=== PATIENT | female | born 1990 | race Caucasian/White ===

== ENCOUNTER → 2016-09-19 | Outpatient (CLI) | payer OTHER ==
--- NOTE | 2016-09-19 14:21 | US ---
EXAMINATION TYPE: US thyroid st tissue head/neck DATE OF EXAM: 09/19/2016 1:13 PM COMPARISON: NONE CLINICAL HISTORY: 26 year-old female E04.9 Enlarged thyroid. TECHNIQUE: Multiple sonographic images of the thyroid gland were obtained. FINDINGS: Right Lobe: 5.3 x 1.7 x 2.2 cm Left Lobe: 4.9 x 1.5 x 1.9 cm Isthmus Thickness: 0.3 cm The glandular parenchyma appears minimally heterogeneous. No discrete nodule. IMPRESSION: Borderline to mild thyromegaly. No discrete nodule.
== END | disposition home or self-care (01) ==
LOC: RADUSWWP 12:54
PROVIDERS: ATTEND Obstetrics & Gynecology
DX: E01.0 Iodine-deficiency related diffuse (endemic) goiter (principal)
CPT/HCPCS: 76536

== ENCOUNTER → 2016-10-21 | Outpatient (CLI) | payer OTHER ==
[2016-10-21 11:19] LABS: CH 33.6; CHCM 34.8; HCT 34.7 % (34.0-46.0); HDW 2.79; HGB 12.1 gm/dL (11.4-16.0); MCH 33.9 pg (25.0-35.0); MCHC 34.8 g/dL (31.0-37.0); MCV 97.3 fL (80.0-100.0); Mean Platelet Volume 7.9; RBC 3.56 m/uL (3.80-5.40); RDW 13.5 % (11.5-15.5)
[2016-10-21 11:25] LABS: Glucose 81 mg/dL (74-99); Non-African American GFR(MDRD) >60 (>60 ml/min/1.73 sqM)
[2016-10-21 11:56] LABS: Hepatitis B Surface Ag Index 0.09
[2016-10-22 04:33] LABS: Toxoplasma Antibody (IgG) <3.0 IU/mL (<7.2)
[2016-10-22 07:43] LABS: HIV-1/HIV-2 Ab Screen NONREAC (NON REAC)
[2016-10-24 14:07] LABS: Alpha Fetoprotein (M.O.M) 1.05; B-HCG (M.O.M.) 1.18; Gestational Age (days) 6; Human Chorionic Gonadotropin 25.9 IU/mL; Inhibin A (M.O.M.) 2.48; Interpretation SeeBelow; Maternal Age at EDD (Yrs) 28; Unconjugated Estriol (M.O.M.) 0.58
== END | disposition home or self-care (01) ==
LOC: LABWHC1 10:39
PROVIDERS: ATTEND Obstetrics & Gynecology
DX: Z34.92 Encounter for supervision of normal pregnancy, unspecified, second trimester (principal); Z3A.00 Weeks of gestation of pregnancy not specified
CPT/HCPCS: 36415; 82105; 82565; 82677; 82947; 84443; 84702; 85027; 86336; 86762; 86777; 86778; 86780; 86850; 86900; 86901; 87340; 87389

== ENCOUNTER → 2016-10-21 | Outpatient (CLI) | payer OTHER ==
--- NOTE | 2016-10-21 11:36 | US ---
EXAMINATION TYPE: US OB anatomy transabd DATE OF EXAM: 10/21/2016 10:38 AM COMPARISON: NONE HISTORY: LGA, Anatomy scan TECHNIQUE: Transabdominal (TA) EXAM MEASUREMENTS: GESTATIONAL AGE / DATING Physician Established: (19 weeks/2 days) EDC: 03/15/2017 Dates by LMP: Unknown Dates by First Scan: No prior Dates by Current Scan for: (18 weeks/6 days) EDC: 03/18/2017 SURVEY IUP: Single PLACENTA: Anterior PREVIA: Low Lying ALPHONSO: 13.4 cm Normal CERVICAL LENGTH (transabdominal: norm > 3.0cm): 4.4 cm CERVICAL LENGTH (transvaginal: norm> 2.5cm BIOMETRY PRESENTATION: Breech BPD: 4.2 cm 18 weeks / 5 days HC: 16.4 cm 19 weeks / 1 days AC: 14.1 cm 19 weeks / 4 days FL: 2.8 cm 18 weeks / 4 days ESTIMATED WEIGHT IN GRAMS: 272 grams ESTIMATED WEIGHT IN LBS/OZS: 0 lbs. 10 oz. WEIGHT PERCENTAGE BASED ON ESTABLISHED DATE: 32.8 % HC/AC: 1.16 Normal FL/AC: 20 Normal HEART RATE: 149 bpm RHYTHM: Normal ANATOMY SEEN (within normal limits): * Lateral Vent (< 1 cm) 0.7 cm * Cisterna Magna (< 1.1 cm) 0.4 cm * Nuchal Fold (< 0.6 cm) 0.4 cm * Cerebellum (varies with age) 1.9 cm Choroid Plexus (bilateral) Midline Falx Cavus Septi Pellucidi Four Chamber Heart Outflow tracts: LVOT/RVOT Stomach Situs Diaphragm Nose / Lips Kidneys (bilateral) Bladder Cord Insert Three Vessel Cord Longitudinal Spine Transverse Spine Arms (bilateral) Legs (bilateral) Single, viable IUP/ No abnormality seen at this time. IMPRESSION: Dobbs fetus present in a breech presentation with a gestational age of 18 weeks 6 days +/- 12 day s. Estimated date of confinement based on this examination is 03/18/2017.
== END | disposition home or self-care (01) ==
LOC: RADUSWWP 10:11
PROVIDERS: ATTEND Obstetrics & Gynecology
DX: O36.62X0 Maternal care for excessive fetal growth, second trimester, not applicable or unspecified (principal); Z3A.18 18 weeks gestation of pregnancy
CPT/HCPCS: 76811

== ENCOUNTER → 2017-01-12 | Outpatient (CLI) | payer OTHER ==
[2017-01-12 11:23] LABS: CH 34.3; CHCM 35.2; HCT 35.4 % (34.0-46.0); HDW 3.28; HGB 11.9 gm/dL (11.4-16.0); MCHC 33.6 g/dL (31.0-37.0); MCV 98.2 fL (80.0-100.0); Mean Platelet Volume 8.8; RBC 3.61 m/uL (3.80-5.40); RDW 13.8 % (11.5-15.5); WBC 11.5 k/uL (3.8-10.6)
== END | disposition home or self-care (01) ==
LOC: LABWHC1 10:04
PROVIDERS: ATTEND Obstetrics & Gynecology
DX: Z34.83 Encounter for supervision of other normal pregnancy, third trimester (principal); Z3A.00 Weeks of gestation of pregnancy not specified
CPT/HCPCS: 36415; 82950; 85027

== ENCOUNTER 2017-02-28 20:41 | Inpatient (IN) | payer OTHER ==
[2017-02-28] MEDS ORDERED: METHYLERGONOVINE 0.2 MG/ML 1 ML AMP IM PRN (22:10)
[2017-02-28] MEDS ORDERED: TERBUTALINE 1 MG/ML VIAL SQ PRN (22:10)
[2017-02-28] MEDS ORDERED: CLINDAMYCIN 900 MG in DEXTROSE 5% IN WATER 50 ML IVPB STA ×2 (22:10)
[2017-02-28] MEDS ORDERED: OXYTOCIN 10 UNIT/ML 1 ML VIAL IM PRN (22:10)
[2017-02-28] MEDS ORDERED: CARBOPROST TROMETHAMINE 250 MCG/ML 1 ML AMP IM PRN (22:10)
[2017-02-28] MEDS ORDERED: LIDOCAINE 1% (PF) 10 MG/ML (30 ML SDV) SQ PRN (22:10)
[2017-02-28] MEDS: LACTATED RINGERS 1,000 ML IV SCH ×2 (22:16→22:35)
[2017-02-28 22:23] LABS: Basophils % (A) 0 %; CH 33.6; CHCM 34.9; Eosinophils # (A) 0.1 k/uL (0-0.7); Eosinophils % (A) 1 %; HCT 36.9 % (34.0-46.0); HGB 12.3 gm/dL (11.4-16.0); Luc # (Auto) 0.14; Luc % (Auto) 1; Lymphocytes # (A) 1.4 k/uL (1.0-4.8); Lymphocytes % (A) 12 %; MCH 32.5 pg (25.0-35.0); MCHC 33.5 g/dL (31.0-37.0); Mean Platelet Volume 9.6; Monocytes # (A) 0.6 k/uL (0-1.0); Monocytes % (A) 5 %; Neutrophils # (A) 9.4 k/uL (1.3-7.7); Neutrophils % (A) 81 %; RDW 13.8 % (11.5-15.5); WBC 11.6 k/uL (3.8-10.6)
[2017-02-28] MEDS ORDERED: fentaNYL (PF) 50 MCG/ML 5 ML AMP ONE (22:28)
[2017-02-28] MEDS ORDERED: SODIUM CHLORIDE 0.9% 100 ML BAG ONE (22:28)
[2017-02-28] MEDS ORDERED: BUPIVACAINE (PF) 0.25% 30 ML VIAL ONE (22:28)
--- NOTE | 2017-02-28 22:28 | P.HPOB ---
History of Present Illness H&P Date: 02/28/17 Chief Complaint: Contractions. This patient is a pleasant 26-year-old 8 para 4 female estimated date of confinement 03/15/2017 estimated gestational age 37-6/7 weeks who presents to labor and delivery with complaints of painful contractions since 7:00 this evening. Patient was 3 cm in the office is now 5 cm dilated and having regular contractions. care is per Dr. Mendes appears to be uncomplicated Review of Systems Constitutional: Denies chills, Denies fever Ears, nose, mouth and throat: Denies headache, Denies sore throat Cardiovascular: Denies chest pain, Denies shortness of breath Respiratory: Denies cough Gastrointestinal: Reports heartburn Genitourinary: Reports Menstruation: Reports amenorrhea Musculoskeletal: Denies myalgias Integumentary: Denies pruritus, Denies rash Neurological: Denies numbness, Denies weakness Psychiatric: Denies anxiety, Denies depression Endocrine: Denies fatigue, Denies weight change Past Medical History Past Medical History: No Reported History History of Any Multi-Drug Resistant Organisms: None Reported Additional Past Surgical History / Comment(s): D&C 2 Past Anesthesia/Blood Transfusion Reactions: No Reported Reaction Past Psychological History: No Psychological Hx Reported Smoking Status: Current every day smoker Past Alcohol Use History: None Reported Past Drug Use History: None Reported - Past Family History Mother History Unknown: Yes Family Medical History: Hypertension Medications and Allergies Allergies Allergy/AdvReac Type Severity Reaction Status Date / Time albuterol Allergy Unknown Verified 02/28/17 20:54 Childhood amoxicillin trihydrate Allergy Unknown Verified 02/28/17 20:54 [From Augmentin] Childhood erythromycin base Allergy Unknown Verified 02/28/17 20:54 Childhood potassium clavulanate Allergy Unknown Verified 02/28/17 20:54 [From Augmentin] Childhood Sulfa (Sulfonamide Allergy Unknown Verified 02/28/17 20:54 Antibiotics) Childhood Exam - Vital Signs Vital signs: Vital Signs Temp Pulse Resp BP Pulse Ox 02/28/17 20:55 98.2 F 98 18 122/73 97 Intake and Output 02/28/17 02/28/17 02/28/17 06:59 14:59 22:59 Other: Weight 73.936 kg Patient Weight 03/01/17 06:59 Weight 73.936 kg - OBG Physical Exam Abdomen: bowel sounds normal, no diffuse tenderness, no bruit present, no guarding noted, no hepatomegaly, no splenomegaly, no mass Vulva: both: normal Cervix: no lesion (Cervix is 5 cm dilated and 50% effaced.), no discharge Uterus: enlarged (Fundal height is consistent with a term .) Results blood work shows she is . positive, rubella low positive, hepatitis B negative, RPR is nonreactive, group B strep was negative, although she does have a history of positive strep with previous . HIV was nonreactive, toxoplasmosis was negative, Assessment and Plan (1) Third trimester Narrative/Plan: This is a pleasant 26-year-old 8 para 4 female 37-6/7 weeks gestation and is admitted to labor and delivery in early active labor. Patient's group B strep was negative but does have a history of positive therefore I'm going to give her dose of antibiotics. Plan is anticipate normal spontaneous vaginal delivery. Status: Acute (2) Normal labor Status: Acute
[2017-02-28] MEDS ORDERED: OXYTOCIN 20 UNITS/1000 ML NS 1,000 ML IV SCH (23:30)
[2017-03-01] MEDS ORDERED: MEASLES-MUMPS-RUBELLA VACC/PF 12,500 UNIT/0.5 ML VIAL SQ ONE (01:24)
[2017-03-01] MEDS ORDERED: BENZOCAINE/MENTHOL SPRAY 1 GM/SPRAY AEROSOL TOPICAL PRN (01:24)
[2017-03-01] MEDS ORDERED: ACETAMINOPHEN TAB 325 MG TAB PO PRN (01:24)
[2017-03-01] MEDS ORDERED: LANOLIN CREAM 5 GM TUBE TOPICAL PRN (01:24)
[2017-03-01] MEDS ORDERED: diphenhydrAMINE 50 MG/ML 1 ML VIAL IVP PRN (01:24)
[2017-03-01] MEDS ORDERED: Acetaminophen-Codeine 300-30mg TAB PO PRN ×2 (01:24)
[2017-03-01] MEDS ORDERED: BISACODYL 10 MG SUPP RECTAL PRN (01:24)
[2017-03-01] MEDS ORDERED: WITCH HAZEL 1 EACH MED..PAD TOPICAL PRN (01:24)
[2017-03-01] MEDS ORDERED: ZOLPIDEM 5 MG TAB PO PRN (01:24)
[2017-03-01] MEDS ORDERED: diphenhydrAMINE 25 MG CAP PO PRN (01:24)
[2017-03-01] MEDS ORDERED: SIMETHICONE 80 MG CHEWABLE PO PRN (01:24)
[2017-03-01] MEDS ORDERED: HYDROCORTISONE 2.5% RECTAL CREAM 30 GM TUBE RECTAL PRN (01:24)
--- NOTE | 2017-03-01 01:28 | P.PROBDLV ---
Vaginal Delivery Note - . Vaginal Delivery Note: Normal vaginal delivery viable male Apgars are 8 and 9 delivery time is 0114 hours. Please see dictated H&P for intimate details of this patient's admission. Brief summary this pleasant 26-year-old 8 para 4 female 37-6/7 weeks gestation admitted to labor and delivery in active labor. Patient has one dose of antibiotics given for history of positive strep although she was negative this and artificial rupture membranes at 5 cm for clear fluid. She does get an epidural for pain control. Labor progresses normally she gets to complete pushes the head to the perineum. Posterior perineum was supported we have controlled delivery of the infant's head over the intact perineum. Mouth and nares are bulb suctioned. There is a double nuchal cord which was loose and reduced. With gentle downward traction we then have delivery anterior posterior shoulder and rest this infant's body. This is a vigorous viable male Apgars are 8 and 9 delivery time is 0114 hours. After delivery of the the umbilical cord is doubly clamped and cut appears to be trivascular. Placenta is then spontaneously delivered intact. Estimated blood loss is 100 mL. There is a superficial posterior laceration which is repaired with a [id number] suture of 3-0 Vicryl. Excellent reapproximation is noted. and mother are stable delivery room. There are no complications. All counts are correct 3.
[2017-03-01] MEDS ORDERED: OXYTOCIN 20 UNITS/1000 ML NS 1,000 ML IV SCH (01:30)
[2017-03-01 02:06] VITALS: BMI 25.5
[2017-03-01] MEDS: IBUPROFEN 600 MG TAB PO PRN ×3 (03:51→23:00)
--- NOTE | 2017-03-01 06:21 | P.MSEPDOC ---
Presenting Problems - Arrival Data Date of Arrival on Unit: 02/28/17 Time of Arrival on Unit: 20:42 Mode of Transport: Wheelchair - Complaint OB-Reason for Admission/Chief Complaint: Possible Onset of Labor Comment: 1901 Medical History - Information : 8 Para: 4 Term: 4 : 0 Abortions: Spontaneous or Elective: 1 Number of Living Children: 4 - Gestational Age Expected Date of Delivery: 03/15/17 Gestational Age by SAVAGE (wks/days): 38 Weeks and 0 Days - History Comment: history of GBS+ Review of Systems - Review of Systems Constitutional: No problems Breast: No problems ENT: No problems Cardiovascular: No problems Respiratory: No problems Gastrointestinal: No problems Genitourinary: No problems Musculoskeletal: No problems Neurological: No problems Skin: No problems Vital Signs - Temperature Temperature: 96.8 F Temperature Source: Temporal Artery Scan - Pulse Right Pulse Rate: 69 Pulse Assessment Method: Automatic Cuff - Respirations Respiratory Rate: 16 Oxygen Delivery Method: Room Air - Blood Pressure Right Arm Blood Pressure: 108/60 Blood Pressure Mean: 76 Blood Pressure Source: Automatic Cuff Medical Screen Scoring (Pre) - Cervical Exam Dilation: 4-7 cm = 2 Membranes: Intact - Uterine Contractions Frequency: > or = 36 weeks =2 Duration: > 40 seconds = 2 Intensity: N/A - Maternal Vital Signs Maternal Temperature: N/A Maternal Blood Pressure: N/A Signs of Preeclampsia: N/A Maternal Respirations: N/A - Maternal Trauma Maternal Trauma: N/A - Assessment Baseline FHR: 130 Heart Rate - NICHD Category: Category I (Normal) = 0 NST: Reactive Position: N/A Station: N/A - Total Score Total Score (Pre): 6 - Level of Risk Level of Risk: Medium (6-9) I agree with the RN Medical Screening Exam: Yes Risk & Benefit of care provided described in d/c instruction: Yes Diagnosis: ENCOUNTER FOR FULL-TERM UNCOMPLICATED DELIVERY
[2017-03-01] MEDS: SENNOSIDES-DOCUSATE SODIUM 1 EACH TAB PO SCH ×2 (09:46→19:47)
[2017-03-01 20:33] VITALS: RESP 12
[2017-03-02] MEDS: IBUPROFEN 600 MG TAB PO PRN (05:45)
[2017-03-02] MEDS: SENNOSIDES-DOCUSATE SODIUM 1 EACH TAB PO SCH (08:00)
[2017-03-02 08:32] VITALS: BP 98/64; PULSE 59; TEMP 97.4
--- NOTE | 2017-03-02 09:31 | P.DS ---
Providers Date of admission: 02/28/17 22:05 Expected date of discharge: 03/02/17 Attending physician: Scottie Mendes Primary care physician: Stated None Hospital Course: Susan is doing very well day 1. She's ablating, voiding, and she is tolerating her diet. She voices no complaints. Vital signs are stable and afebrile. Heart regular, lungs clear, extremities without pain. Abdomen is soft uterus is firm lochia is reported be light. Assessment post day 1. Plan discharged home follow me in 6 weeks. Prescription for Motrin has been provided. Patient Condition at Discharge: Good Plan - Discharge Summary New Discharge Prescriptions: New Ibuprofen [Motrin] 600 mg PO Q6HR PRN #30 tab PRN Reason: Pain No Action Vyb-[id number] Acid [-U Capsule (formulary)] 1 tab PO DAILY Discharge Medication List Arp-Pxwf-Krrvu Acid [-U Capsule (formulary)] 1 tab PO DAILY 09/16 [History] Ibuprofen [Motrin] 600 mg PO Q6HR PRN #30 tab 03/02/17 [Rx] Follow up Appointment(s)/Referral(s): Scottie Mendes DO [Doctor of Osteopathic Medicine] - 6 Weeks Activity/Diet/Wound Care/Special Instructions: No heavy lifting, limit stairs and driving, pelvic rest. call the office for high temps, heavy bleeding, or severe pain Discharge Disposition: HOME SELF-CARE
== END 2017-03-02 13:50 | disposition home or self-care (01) | DRG 775 ==
LOC: FBPOP 20:41 → 4FBP 22:05
PROVIDERS: ADMIT Obstetrics & Gynecology; ATTEND Obstetrics & Gynecology
PROC: 10E0XZZ Delivery of Products of Conception, External Approach (ICD-10-PCS; principal; 2017-03-01)
PROC: 0HQ9XZZ Repair Perineum Skin, External Approach (ICD-10-PCS; 2017-03-01)
PROC: 00HU33Z Insertion of Infusion Device into Spinal Canal, Percutaneous Approach (ICD-10-PCS; 2017-03-01)
PROC: 3E0R3CZ (ICD-10-PCS; 2017-03-01)
DX: O69.81X0 Labor and delivery complicated by cord around neck, without compression, not applicable or unspecified (principal); O99.334 Smoking (tobacco) complicating childbirth; O70.9 Perineal laceration during delivery, unspecified; Z37.0 Single live birth; Z3A.37 37 weeks gestation of pregnancy; Z88.1 Allergy status to other antibiotic agents; Z88.0 Allergy status to penicillin; Z88.2 Allergy status to sulfonamides; Z88.8 Allergy status to other drugs, medicaments and biological substances; Z82.49 Family history of ischemic heart disease and other diseases of the circulatory system
CPT/HCPCS: 59025; 85025; 88307; 90707; 99213

== ENCOUNTER 2018-06-30 02:35 | Inpatient (IN) | payer OTHER ==
[2018-06-30] MEDS ORDERED: METHYLERGONOVINE 0.2 MG/ML 1 ML AMP IM PRN (02:56)
[2018-06-30] MEDS ORDERED: CARBOPROST TROMETHAMINE 250 MCG/ML 1 ML AMP IM PRN (02:56)
[2018-06-30] MEDS ORDERED: LIDOCAINE 0.5% (PF) 5 MG/ML (50 ML SDV) SQ PRN (02:56)
[2018-06-30] MEDS ORDERED: OXYTOCIN 10 UNIT/ML 1 ML VIAL IM PRN (02:56)
[2018-06-30] MEDS ORDERED: TERBUTALINE 1 MG/ML VIAL SQ PRN (02:56)
[2018-06-30] MEDS: LACTATED RINGERS 1,000 ML IV SCH ×2 (03:00→04:04)
[2018-06-30 03:25] LABS: Basophils % (A) 0 %; Eosinophils # (A) 0.1 k/uL (0-0.7); Eosinophils % (A) 1 %; HCT 33.5 % (34.0-46.0); HGB 11.6 gm/dL (11.4-16.0); Lymphocytes # (A) 1.6 k/uL (1.0-4.8); Lymphocytes % (A) 14 %; MCH 33.2 pg (25.0-35.0); MCHC 34.5 g/dL (31.0-37.0); MCV 96.2 fL (80.0-100.0); Mean Platelet Volume 8.8; Monocytes # (A) 0.6 k/uL (0-1.0); Monocytes % (A) 5 %; Neutrophils # (A) 9.2 k/uL (1.3-7.7); Neutrophils % (A) 79 %; Platelet Count 163 k/uL (150-450); RBC 3.49 m/uL (3.80-5.40); RDW 13.2 % (11.5-15.5); WBC 11.7 k/uL (3.8-10.6)
[2018-06-30] MEDS ORDERED: fentaNYL (PF) 50 MCG/ML 5 ML AMP ONE (03:30)
[2018-06-30] MEDS ORDERED: SODIUM CHLORIDE 0.9% 100 ML BAG ONE (03:30)
[2018-06-30] MEDS ORDERED: BUPIVACAINE (PF) 0.25% 30 ML VIAL ONE (03:30)
[2018-06-30] MEDS: OXYTOCIN 20 UNITS/1000 ML NS 1,000 ML IV SCH ×2 (06:18→20:50)
[2018-06-30] MEDS ORDERED: ACETAMINOPHEN TAB 325 MG TAB PO PRN (09:11)
[2018-06-30] MEDS ORDERED: ZOLPIDEM 5 MG TAB PO PRN (09:11)
[2018-06-30] MEDS ORDERED: WITCH HAZEL 1 EACH MED..PAD TOPICAL PRN (09:11)
[2018-06-30] MEDS ORDERED: LANOLIN CREAM 5 GM TUBE TOPICAL PRN (09:11)
[2018-06-30] MEDS ORDERED: HYDROCORTISONE 2.5% RECTAL CREAM 30 GM TUBE RECTAL PRN (09:11)
[2018-06-30] MEDS ORDERED: SIMETHICONE 80 MG CHEWABLE PO PRN (09:11)
[2018-06-30] MEDS ORDERED: diphenhydrAMINE 50 MG/ML 1 ML VIAL IVP PRN ×2 (09:11)
[2018-06-30] MEDS ORDERED: diphenhydrAMINE 50 MG CAP PO PRN (09:11)
[2018-06-30] MEDS ORDERED: BENZOCAINE/MENTHOL SPRAY 1 GM/SPRAY AEROSOL TOPICAL PRN (09:11)
[2018-06-30] MEDS ORDERED: diphenhydrAMINE 25 MG CAP PO PRN (09:11)
[2018-06-30] MEDS ORDERED: OXYTOCIN 20 UNITS/1000 ML NS 1,000 ML IV SCH (09:15)
--- NOTE | 2018-06-30 09:28 | P.HPOB ---
History of Present Illness H&P Date: 06/30/18 Chief Complaint: Labor 28 year old at 35 weeks 5 days presents in active labor. HEr cervix is 5/60 /-2. She is wes every 2 minutes. heart tones 130-135 with moderate variability and reactive. Review of Systems All systems: negative Constitutional: Denies chills, Denies fever Eyes: denies blurred vision, denies pain Ears, nose, mouth and throat: Denies headache, Denies sore throat Cardiovascular: Denies chest pain, Denies shortness of breath Respiratory: Denies cough Gastrointestinal: Denies abdominal pain, Denies diarrhea, Denies nausea, Denies vomiting Genitourinary: Denies dysuria, Denies hematuria Musculoskeletal: Denies myalgias Integumentary: Denies pruritus, Denies rash Neurological: Denies numbness, Denies weakness Psychiatric: Denies anxiety, Denies depression Endocrine: Denies fatigue, Denies weight change Past Medical History Past Medical History: No Reported History Additional Past Medical History / Comment(s): OSTEOPORSIS, HEADACHES. Obstetric history: She's had 5 previous vaginal deliveries and 3 miscarriages. This is her sixth . She's had care with Dr. Puente. Blood type is O+, and it is negative, rubella immune, this B-, GBS negative, HIV nonreactive. History of Any Multi-Drug Resistant Organisms: None Reported Past Surgical History: No Surgical Hx Reported Additional Past Surgical History / Comment(s): D&C 2 Past Anesthesia/Blood Transfusion Reactions: Postoperative Nausea & Vomiting ( PONV) Additional Past Anesthesia/Blood Transfusion Reaction / Comment(s): MOTHER DIFFICULTY WAKING UP (MYASTHENIA GRAVIS) Past Psychological History: No Psychological Hx Reported Smoking Status: Current every day smoker Past Alcohol Use History: Rare Additional Past Alcohol Use History / Comment(s): SMOKES 1 PPD., SMOKING SINCE 13 YEARS OLD - 12 YEARS. Past Drug Use History: None Reported - Past Family History Father Family Medical History: Rheumatoid Arthritis (RA) Mother History Unknown: Yes Family Medical History: Hypertension Additional Family Medical History / Comment(s): MYASTHENIA GRAVIS Medications and Allergies Allergies Allergy/AdvReac Type Severity Reaction Status Date / Time albuterol Allergy Unknown Verified 06/30/18 02:50 Childhood amoxicillin trihydrate Allergy Unknown Verified 06/30/18 02:50 [From Augmentin] Childhood erythromycin base Allergy Unknown Verified 06/30/18 02:50 Childhood potassium clavulanate Allergy Unknown Verified 06/30/18 02:50 [From Augmentin] Childhood Sulfa (Sulfonamide Allergy Unknown Verified 06/30/18 02:50 Antibiotics) Childhood Exam Osteopathic Statement: *. No significant issues noted on an osteopathic structural exam other than those noted in the History and Physical/Consult. Vital Signs Temp Pulse Resp BP Pulse Ox 06/30/18 02:55 97.0 F L 87 118/75 06/30/18 02:51 97.5 F L 87 16 118/75 98 Intake and Output 06/29/18 06/30/18 06/30/18 22:59 06:59 14:59 Output Total 300 Balance -300 Output: Urine 300 Other: # Voids 1 Weight 72.575 kg Heart: Regular rate and rhythm Lungs: Clear to auscultation bilaterally Abdomen: Soft, nontender Extremities: Negative Homans sign Results Result Diagrams: 06/30/18 03:00 Abnormal Lab Results - Last 24 Hours (Table) 06/30/18 Range/Units 03:00 WBC 11.7 H (3.8-10.6) k/uL RBC 3.49 L (3.80-5.40) m/uL Hct 33.5 L (34.0-46.0) % Neutrophils # 9.2 H (1.3-7.7) k/uL Assessment and Plan (1) labor Current Visit: Yes Status: Acute Code(s): O60.00 - LABOR WITHOUT DELIVERY, UNSPECIFIED TRIMESTER SNOMED Code(s): 6140014 Plan: 1. Admit to family place 2. Expectant management 3. Anticipate normal vaginal delivery
--- NOTE | 2018-06-30 09:30 | P.PROBDLV ---
Vaginal Delivery Note - . Vaginal Delivery Note: 28-year-old presented at 35 weeks and 5 days in active labor. Her cervix was 4 centers dilated, 60% effaced, and -2 station. She is wes every 2 minutes. heart tones 130-135 with moderate variability and reactive. She is admitted to [facility] and did get an epidural for pain management. When she was 57 m dilated amniotomy was performed and clear fluid was noted. She progressed slowly to complete at 8:36 AM. She pushed, delivered a viable female over intact perineum under epidural anesthesia at 8:56 AM. Head delivered OA, anterior shoulder delivered gentle downward guidance followed by posterior shoulder and rest of body. Nose and mouth bulb suctioned, cord clamped and cut, placed mother's abdomen. Apgars 8, 9, weight 5 lbs. 11 oz. Placenta delivered spontaneously, intact with three- vessel cord at 8:57 AM. Vagina, cervix, perineum inspected. No lacerations noted. Estimated blood loss 150 mL. Mother and baby in stable condition.
[2018-06-30] MEDS: IBUPROFEN 600 MG TAB PO PRN ×2 (09:53→17:14)
[2018-06-30] MEDS: SENNOSIDES-DOCUSATE SODIUM 1 EACH TAB PO SCH (21:31)
[2018-07-01] MEDS: SENNOSIDES-DOCUSATE SODIUM 1 EACH TAB PO SCH ×2 (08:03→20:32)
[2018-07-01] MEDS: IBUPROFEN 600 MG TAB PO PRN ×3 (08:03→21:50)
--- NOTE | 2018-07-01 09:30 | P.PNOBGVD ---
Subjective - Subjective Principal diagnosis: Status post normal vaginal delivery day #1 Interval history: Patient seen and examined. Denies nausea, vomiting, chest pain, shortness of breath or calf pain. Patient reports: Reports appetite normal, Reports voiding normally, Reports pain well controlled, Reports ambulating normally [place]: other (In the nursery due to being and having some problems with suck, swallow, breathe reflex) Objective - Latest Vital Signs Latest vital signs: Vital Signs Temp Pulse Resp BP 07/01/18 08:00 97.6 F 71 15 108/70 07/01/18 00:00 97.9 F 71 16 90/52 06/30/18 20:00 98.1 F 73 16 106/63 06/30/18 15:11 98.0 F 78 16 113/63 06/30/18 13:54 72 16 112/63 06/30/18 11:10 77 16 111/63 06/30/18 10:35 97.7 F 68 16 113/68 06/30/18 10:05 71 16 103/68 06/30/18 09:50 78 16 103/64 06/30/18 09:35 67 16 105/61 Intake and Output 06/30/18 07/01/18 07/01/18 22:59 06:59 14:59 Other: # Voids 2 - Exam Lungs: bilateral: normal Chest: Normal S1, Normal S2 Extremities: Present: normal Abdomen: Present: normal appearance, soft Uterus: Present: normal, firm Assessment and Plan (1) labor Current Visit: Yes Status: Resolved Code(s): O60.00 - LABOR WITHOUT DELIVERY, UNSPECIFIED TRIMESTER SNOMED Code(s): 5009161 (2) Normal vaginal delivery Current Visit: Yes Status: Acute Code(s): O80 - ENCOUNTER FOR FULL-TERM UNCOMPLICATED DELIVERY SNOMED Code(s): 92851247 Plan: 1. Continue care
[2018-07-01 16:12] VITALS: RESP 16
[2018-07-02] MEDS: IBUPROFEN 600 MG TAB PO PRN (08:01)
[2018-07-02] MEDS: SENNOSIDES-DOCUSATE SODIUM 1 EACH TAB PO SCH (08:02)
[2018-07-02 08:08] VITALS: BP 114/71; PULSE 63; TEMP 98
--- NOTE | 2018-07-02 08:45 | P.DS ---
Providers Date of admission: 06/30/18 02:52 Expected date of discharge: 07/02/18 Attending physician: Scottie Mendes Primary care physician: Stated None Hospital Course: Susan is doing very well day 2. She is involuting, voiding, and she is tolerating her diet. Her baby remains in special care nursery. We'll plan discharged home later today. Discharge instructions were thoroughly reviewed. Vital signs are stable and she is afebrile. Heart regular, lungs clear, extremities are without pain. Abdomen is soft uterus is firm and lochia is reported be light. Assessment day 2. Plan discharged home follow up with me in 6 weeks. A prescription for Motrin was forwarded to her pharmacy. Patient Condition at Discharge: Good Plan - Discharge Summary New Discharge Prescriptions: New Ibuprofen [Motrin] 600 mg PO Q6HR PRN #30 tab PRN Reason: Pain Discharge Medication List Ibuprofen [Motrin] 600 mg PO Q6HR PRN #30 tab 07/02/18 [Rx] Follow up Appointment(s)/Referral(s): Scottie Mendes DO [Doctor of Osteopathic Medicine] - 6 Weeks Activity/Diet/Wound Care/Special Instructions: No heavy lifting, limit stairs and driving, and pelvic rest. If any high temperatures, heavy bleeding, or severe pain call my office Discharge Disposition: HOME SELF-CARE
== END 2018-07-02 10:35 | disposition home or self-care (01) | DRG 807 ==
LOC: FBPOP 02:35 → 4FBP 02:52
PROVIDERS: ADMIT Obstetrics & Gynecology; ATTEND Obstetrics & Gynecology
PROC: 10E0XZZ Delivery of Products of Conception, External Approach (ICD-10-PCS; principal; 2018-06-30)
PROC: 10907ZC Drainage of Amniotic Fluid, Therapeutic from Products of Conception, Via Natural or Artificial Opening (ICD-10-PCS; principal; 2018-06-30)
PROC: 3E0R3NZ Introduction of Analgesics, Hypnotics, Sedatives into Spinal Canal, Percutaneous Approach (ICD-10-PCS; principal; 2018-06-30)
PROC: 00HU33Z Insertion of Infusion Device into Spinal Canal, Percutaneous Approach (ICD-10-PCS; principal; 2018-06-30)
DX: O60.14X0 Preterm labor third trimester with preterm delivery third trimester, not applicable or unspecified (principal); Z37.0 Single live birth; Z3A.35 35 weeks gestation of pregnancy; Z82.49 Family history of ischemic heart disease and other diseases of the circulatory system; O99.334 Smoking (tobacco) complicating childbirth; F17.200 Nicotine dependence, unspecified, uncomplicated; Z88.1 Allergy status to other antibiotic agents; Z88.2 Allergy status to sulfonamides; Z88.8 Allergy status to other drugs, medicaments and biological substances
CPT/HCPCS: 59025; 85025; 86850; 86900; 86901; 88307; 99213